=== PATIENT | female | born 1995 | race African-American/Black ===

== ENCOUNTER 2020-04-03 10:29 | Emergency (ER) | payer OTHER ==
[~2020-04-03] VITALS: Ht 154.9 cm; Wt 47.0 kg
[2020-04-03 10:38] VITALS: BP 118/78
[2020-04-03] MEDS ORDERED: ACETAMINOPHEN 500MG TABLET PO ONE (11:00)
== END 2020-04-03 13:39 | disposition home or self-care (01) ==
LOC: ER 10:34
DX: S80.02XA Contusion of left knee, initial encounter (principal); V49.49XA Driver injured in collision with other motor vehicles in traffic accident, initial encounter; Y93.89 Activity, other specified; Y92.89 Other specified places as the place of occurrence of the external cause; Y99.8 Other external cause status; E03.9 Hypothyroidism, unspecified
CPT/HCPCS: 73560; 81025; 99283